=== PATIENT | female | born 1980 | race Caucasian/White ===

== ENCOUNTER 2021-01-12 00:01 | Emergency (ER) | payer BC ==
[2021-01-12] MEDS: Sodium Chloride 0.9% 10 ML Syringe FLUSH PRN ×2 (00:30→01:47)
--- NOTE | 2021-01-12 00:44 | EDM.PDOC ---
ED HPI GENERAL MEDICAL PROBLEM - General Chief Complaint: Chest Pain Stated Complaint: CHEST AND BACK PAIN Time Seen by Provider: 01/12/21 00:08 Source of Information: Reports: Patient History Limitations: Reports: No Limitations - History of Present Illness INITIAL COMMENTS - FREE TEXT/NARRATIVE: The patient presents with upper chest pain on both sides that radiates to her back. This has been going on for about 4 days. She went to the walk in clinic and they gave her a muscle relaxer but that his not helping. She is also short of breath with it. She has no fever, chills, cough, abdominal pain, nausea or vomiting She has no history of DVT or PE. She does not smoke. She has no health problems such as asthma or heart disease. Onset: Gradual Duration: Day(s): Location: Reports: Chest, Back Quality: Reports: Sharp (cramping) Severity: Moderate Improves with: Reports: None Worsens with: Reports: None Associated Symptoms: Reports: Chest Pain, Shortness of Breath. Denies: Cough, Fever/Chills, Headaches, Nausea/Vomiting Bilateral Chest Pain Score (Numeric/FACES): 7 - Related Data Allergies Allergy/AdvReac Type Severity Reaction Status Date / Time No Known Allergies Allergy Verified 01/12/21 00:09 Home Meds: Home Meds Cyclobenzaprine [Flexeril] 10 mg PO DAILY 01/12/21 [History] Norethindrone-Ethin. Estradiol [Dasetta] 1 each PO DAILY 01/12/21 [History] Rivaroxaban [Xarelto] 15 mg PO BID #42 tab 01/12/21 [Rx] Rivaroxaban [Xarelto] 20 mg PO DAILY #30 tablet 01/12/21 [Rx] lisinopriL [Lisinopril] 30 mg PO DAILY 01/12/21 [History] Past Medical History Cardiovascular History: Reports: Hypertension - Past Surgical History Female Surgical History: Reports: Section Social & Family History - Tobacco Use Tobacco Use Status *Q: Never Tobacco User ED ROS GENERAL - Review of Systems Review Of Systems: See Below Constitutional: Reports: No Symptoms HEENT: Reports: No Symptoms Respiratory: Reports: Shortness of Breath. Denies: Cough Cardiovascular: Reports: Chest Pain Endocrine: Reports: No Symptoms GI/Abdominal: Reports: No Symptoms : Reports: No Symptoms Musculoskeletal: Reports: No Symptoms ED EXAM, GENERAL - Physical Exam Exam: See Below Exam Limited By: No Limitations General Appearance: Alert, No Apparent Distress Ears: Normal External Exam Nose: Normal Inspection Throat/Mouth: Normal Inspection Head: Atraumatic, Normocephalic Neck: Normal Inspection Respiratory/Chest: No Respiratory Distress, Lungs Clear, Normal Breath Sounds Cardiovascular: Regular Rate, Rhythm, No Edema, No Murmur GI/Abdominal: Soft, Non-Tender, No Organomegaly, No Mass #1 Interpretation EKG Date: 01/12/21 Time: 12:12 Rhythm: Other (Sinus tachycardia) Rate (Beats/Min): 109 [place]: LAD-Left [place] Deviation P-Wave: Present QRS: Normal ST-T: Normal QT: Normal Course - Vital Signs Last Recorded V/S: Last Vital Signs Temp 98.4 F 01/12/21 00:31 Pulse 123 H 01/12/21 00:31 Resp 21 H 01/12/21 00:31 BP 127/72 01/12/21 00:31 Pulse Ox 96 01/12/21 00:31 - Orders/Labs/Meds Orders: Active Orders 24 hr Category Date Time Status Cardiac Monitoring [RC] . DIRECTED Care 01/12/21 00:26 Active Peripheral IV Care [RC] . DIRECTED Care 01/12/21 00:27 Active Ang Chest [CT] Stat Exams 01/12/21 01:12 Taken Chest 1V Frontal [CR] Stat Exams 01/12/21 00:27 Taken Sodium Chloride 0.9% [Normal Saline] 100 ml Med 01/12/21 01:30 Active IV ASDIRECTED Sodium Chloride 0.9% [Saline Flush] Med 01/12/21 00:26 Active 10 ml FLUSH ASDIRECTED PRN Peripheral IV Insertion Adult [OM.PC] Stat Oth 01/12/21 00:26 Ordered Medication Orders Sodium Chloride (Normal Saline) 100 mls @ 60 mls/min IV ASDIRECTED LETITIA Last Admin: 01/12/21 01:48 Dose: 60 mls/min Documented by: TAM Sodium Chloride (Sodium Chloride 0.9% 10 Ml Syringe) 10 ml FLUSH ASDIRECTED PRN PRN Reason: Keep Vein Open Last Admin: 01/12/21 01:47 Dose: 10 ml Documented by: Admin: 01/12/21 00:30 Dose: 10 ml Documented by: DANDRE Labs: Laboratory Tests 01/12/21 01/12/21 01/12/21 Range/Units 00:20 00:20 00:20 WBC 17.35 H (3.98-10.04) K/mm3 RBC 3.89 L (3.98-5.22) M/mm3 Hgb 12.4 (11.2-15.7) gm/dl Hct 36.9 (34.1-44.9) % MCV 94.9 H (79.4-94.8) fl MCH 31.9 (25.6-32.2) pg MCHC 33.6 (32.2-35.5) g/dl RDW Std Deviation 40.7 (36.4-46.3) fL Plt Count 339 (182-369) K/mm3 MPV 9.2 L (9.4-12.3) fl Neut % (Auto) 81.6 H (34.0-71.1) % Lymph % (Auto) 9.3 L (19.3-51.7) % Henry % (Auto) 8.1 (4.7-12.5) % Eos % (Auto) 0.5 L (0.7-5.8) Baso % (Auto) 0.2 (0.1-1.2) % Neut # (Auto) 14.15 H (1.56-6.13) K/mm3 Lymph # (Auto) 1.62 (1.18-3.74) K/mm3 Henry # (Auto) 1.40 H (0.24-0.36) K/mm3 Eos # (Auto) 0.09 (0.04-0.36) K/mm3 Baso # (Auto) 0.04 (0.01-0.08) K/mm3 D-Dimer, Quantitative 5.13 H (0.19-0.50) mg/L Sodium 134 L (136-145) mEq/L Potassium 4.0 (3.5-5.1) mEq/L Chloride 100 (98-107) mEq/L Carbon Dioxide 23 (21-32) mEq/L Anion Gap 15.0 (5-15) BUN 10 (7-18) mg/dL Creatinine 0.7 (0.55-1.02) mg/dL Est Cr Clr Drug Dosing 99.01 mL/min Estimated GFR (MDRD) > 60 (>60) mL/min BUN/Creatinine Ratio 14.3 (14-18) Glucose 143 H (70-99) mg/dL Calcium 8.8 (8.5-10.1) mg/dL Total Bilirubin 0.4 (0.2-1.0) mg/dL AST 17 (15-37) U/L ALT 32 (14-59) U/L Alkaline Phosphatase 73 (46-116) U/L Troponin I < 0.017 (0.00-0.056) ng/mL Total Protein 7.3 (6.4-8.2) g/dl Albumin 3.1 L (3.4-5.0) g/dl Globulin 4.2 gm/dL Albumin/Globulin Ratio 0.7 L (1-2) TSH 3rd Generation (0.358-3.74) uIU/mL SARS-CoV-2 RNA (SOL) (NEGATIVE) 01/12/21 01/12/21 Range/Units 00:20 00:34 WBC (3.98-10.04) K/mm3 RBC (3.98-5.22) M/mm3 Hgb (11.2-15.7) gm/dl Hct (34.1-44.9) % MCV (79.4-94.8) fl MCH (25.6-32.2) pg MCHC (32.2-35.5) g/dl RDW Std Deviation (36.4-46.3) fL Plt Count (182-369) K/mm3 MPV (9.4-12.3) fl Neut % (Auto) (34.0-71.1) % Lymph % (Auto) (19.3-51.7) % Henry % (Auto) (4.7-12.5) % Eos % (Auto) (0.7-5.8) Baso % (Auto) (0.1-1.2) % Neut # (Auto) (1.56-6.13) K/mm3 Lymph # (Auto) (1.18-3.74) K/mm3 Henry # (Auto) (0.24-0.36) K/mm3 Eos # (Auto) (0.04-0.36) K/mm3 Baso # (Auto) (0.01-0.08) K/mm3 D-Dimer, Quantitative (0.19-0.50) mg/L Sodium (136-145) mEq/L Potassium (3.5-5.1) mEq/L Chloride (98-107) mEq/L Carbon Dioxide (21-32) mEq/L Anion Gap (5-15) BUN (7-18) mg/dL Creatinine (0.55-1.02) mg/dL Est Cr Clr Drug Dosing mL/min Estimated GFR (MDRD) (>60) mL/min BUN/Creatinine Ratio (14-18) Glucose (70-99) mg/dL Calcium (8.5-10.1) mg/dL Total Bilirubin (0.2-1.0) mg/dL AST (15-37) U/L ALT (14-59) U/L Alkaline Phosphatase (46-116) U/L Troponin I (0.00-0.056) ng/mL Total Protein (6.4-8.2) g/dl Albumin (3.4-5.0) g/dl Globulin gm/dL Albumin/Globulin Ratio (1-2) TSH 3rd Generation 2.564 (0.358-3.74) uIU/mL SARS-CoV-2 RNA (SOL) Negative (NEGATIVE) Meds: Medications Generic Name Dose Route Start Last Admin Trade Name Freq PRN Reason Stop Dose Admin Sodium Chloride 100 mls @ 60 mls/min 01/12/21 01:30 01/12/21 01:48 Normal Saline IV 60 mls/min ASDIRECTED LETITIA Administration Sodium Chloride 10 ml 01/12/21 00:26 01/12/21 01:47 Sodium Chloride 0.9% 10 Ml Syringe FLUSH 10 ml ASDIRECTED PRN Administration Keep Vein Open Discontinued Medications Generic Name Dose Route Start Last Admin Trade Name Freq PRN Reason Stop Dose Admin Iopamidol 100 ml 01/12/21 01:19 01/12/21 01:47 Iopamidol 755 Mg/Ml 100 Ml Bottle IVPUSH 01/12/21 01:20 100 ml ONETIME ONE Administration Rivaroxaban 15 mg 01/12/21 02:33 Rivaroxaban 15 Mg Tab PO 01/12/21 02:34 ONETIME ONE Sodium Chloride 10 ml 01/12/21 01:19 Sodium Chloride 0.9% 10 Ml Sdv FLUSH 01/12/21 01:20 ONETIME ONE - Re-Assessments/Exams Free Text/Narrative Re-Assessment/Exam: 01/12/21 00:45 I ordered an IV saline lock, EKG, CXR and labs. Her EKG shows a sinus tachycardia with no acute changes. 01/12/21 02:41 Her WBC was elevated at 17.35. Her D-dimer was elevated at 5.13. Her Na was low at 134. Her glucose was elevated at 143. Her troponin was negative. Her TSH was normal and she was COVID 19 negative. Her CXR looked good. Her D-dimer was elevated so I ordered a CT angio of her chest. The CT shows extensive pulmonary emboli. Bilateral parenchymal opacifications on the left. Left pleural effusion. Right heart strain. I have ordered a dose of xarelto. I will get her a prescription. She is hemodynamically stable and her oxygen saturations are good here. I do not think she needs to be admitted. I will have her follow up with her provider and they can do some other lab work then. Departure - Departure Time of Disposition: 02:45 Disposition: Home, Self-Care 01 Condition: Good Clinical Impression: Pulmonary emboli Qualifiers: Pulmonary embolism type: other Chronicity: acute Acute cor pulmonale presence: unspecified Qualified Code(s): I26.99 - Other pulmonary embolism without acute cor pulmonale Prescriptions: Rivaroxaban [Xarelto] 15 mg PO BID #42 tab Rivaroxaban [Xarelto] 20 mg PO DAILY #30 tablet Referrals: Kanchan Amado PA-C [Primary Care Provider] - 1 Week Forms: ED Department Discharge Additional Instructions: Take the xarelto 15mg 2 times per day for 21 days. Then take 20mg daily after that. Follow up with your provider this week. Look for any signs of bleeding such as blood in your stool and dark stools, and if you see any of these signs please return. If you fall and hit your head, be evaluated right away. Take tylenol or motrin for any pain. Please return if you are worse. Sepsis Event Note (ED) - Evaluation Sepsis Screening Result: No Definite Risk - Focused Exam Vital Signs: Vital Signs Temp Pulse Resp BP Pulse Ox 01/12/21 00:31 98.4 F 123 H 21 H 127/72 96 - My Orders Last 24 Hours: My Active Orders 01/12/21 00:26 Cardiac Monitoring [RC] . DIRECTED Sodium Chloride 0.9% [Saline Flush] 10 ml FLUSH ASDIRECTED PRN Peripheral IV Insertion Adult [OM.PC] Stat 01/12/21 00:27 Peripheral IV Care [RC] . DIRECTED Chest 1V Frontal [CR] Stat 01/12/21 01:12 Ang Chest [CT] Stat 01/12/21 01:30 Sodium Chloride 0.9% [Normal Saline] 100 ml IV ASDIRECTED - Assessment/Plan Last 24 Hours: My Active Orders 01/12/21 00:26 Cardiac Monitoring [RC] . DIRECTED Sodium Chloride 0.9% [Saline Flush] 10 ml FLUSH ASDIRECTED PRN Peripheral IV Insertion Adult [OM.PC] Stat 01/12/21 00:27 Peripheral IV Care [RC] . DIRECTED Chest 1V Frontal [CR] Stat 01/12/21 01:12 Ang Chest [CT] Stat 01/12/21 01:30 Sodium Chloride 0.9% [Normal Saline] 100 ml IV ASDIRECTED
[2021-01-12] MEDS ORDERED: Sodium Chloride 0.9% 10 ML SDV FLUSH ONE (01:19)
[2021-01-12] MEDS ORDERED: Iopamidol 755 Mg/ML 100 ML Bottle IVPUSH ONE (01:19)
[2021-01-12] MEDS ORDERED: Sodium Chloride 0.9% 100 ML IV SCH (01:30)
[2021-01-12] MEDS ORDERED: Rivaroxaban 15 MG Tab PO ONE (02:33)
--- NOTE | 2021-01-12 07:40 | CR ---
Chest: Portable view of the chest was obtained. Comparison: No prior chest x-rays available. Patchy increased density is seen within the left lung base. Left upper and right lung are clear. Heart size and mediastinum are normal. No acute osseous abnormality is appreciated. Impression: 1. Increased density within the left lung base most likely representing pneumonia. Please correlate. Diagnostic code #3
--- NOTE | 2021-01-12 07:52 | CT ---
CT chest Technique: Multiple axial sections through the chest were obtained. Intravenous contrast was utilized. Study has been performed as a CT pulmonary angiogram protocol. Comparison: Prior chest x-ray performed earlier on the same day (1:11 AM). Findings: Filling defects are seen within the segmental and subsegmental branches of both lower lungs. Findings are compatible with pulmonary embolism. Thoracic aorta shows no aneurysm. No mediastinal adenopathy is seen. No pericardial thickening is seen. Small portion of the visualized upper abdominal structures show nothing acute. Small left-sided pleural effusion is noted. Very minimal right-sided pleural effusion is seen. Patchy increased density is noted within the left lung base. Smaller density is seen within the right lung base. Given that there is pulmonary emboli present this could represent an early area of pulmonary infarctions. Lungs otherwise are clear. Bone window settings were reviewed which show no acute osseous abnormality. Impression: 1. Pulmonary emboli within both segmental and subsegmental lower lobe pulmonary arteries. 2. Minimal right-sided pleural effusion and small left-sided pleural effusion. 3. Patchy areas of increased density within both lung bases, worse on the left side. Given that there are pulmonary emboli present, findings are suspicious for possible pulmonary infarction. Diagnostic code #5 I agree with preliminary report from [facility] finalized on 01/12/21, 3:12 AM CDT, code 1
== END 2021-01-12 03:01 | disposition home or self-care (01) ==
LOC: JD.ED 00:01
DX: I26.99 Other pulmonary embolism without acute cor pulmonale (principal); R00.0 Tachycardia, unspecified; I10 Essential (primary) hypertension; Z79.01 Long term (current) use of anticoagulants; Z79.899 Other long term (current) drug therapy; Z20.822 Contact with and (suspected) exposure to COVID-19
CPT/HCPCS: 36415; 71045; 71275; 80053; 84443; 84484; 85025; 85379; 87635; 93005; 99285; A9270; Q9967; U0002